=== PATIENT | male | born 1985 | race Caucasian/White ===

== ENCOUNTER 2017-10-05 16:38 | Emergency (ER) | payer OTHER ==
[~2017-10-05] VITALS: Ht 175.3 cm; Wt 65.8 kg
[2017-10-05 16:43] VITALS: Ht 175.3 cm; Wt 65.8 kg
[2017-10-05 17:39] VITALS: BP 115/69
== END 2017-10-05 17:39 | disposition home or self-care (01) ==
LOC: ED 16:38
DX: S01.511A Laceration without foreign body of lip, initial encounter (principal); X58.XXXA Exposure to other specified factors, initial encounter; Y93.89 Activity, other specified; Y92.89 Other specified places as the place of occurrence of the external cause; Y99.8 Other external cause status

== ENCOUNTER 2017-10-09 16:55 | Emergency (ER) | payer OTHER ==
[~2017-10-09] VITALS: Ht 175.3 cm; Wt 67.6 kg
[2017-10-09 16:57] VITALS: Ht 175.3 cm; Wt 67.6 kg
[2017-10-09 17:25] VITALS: BP 145/76
== END 2017-10-09 17:25 | disposition home or self-care (01) ==
LOC: ED 16:55
DX: S01.511D Laceration without foreign body of lip, subsequent encounter (principal); W54.0XXD Bitten by dog, subsequent encounter